=== PATIENT | female | born 1980 | race Caucasian/White ===

== ENCOUNTER 2020-03-31 12:26 | Inpatient (IN) | payer BC, SELFPAY ==
[2020-03-31] VITALS (16 sets, daily range): BP systolic 121–186; BP diastolic 84–118; PULSE 105–126; RESP 22–32; TEMP 36.5–37.6; O2SAT 85–97
--- NOTE | ~2020-03-31 | XR_ITS ---
EXAMINATION: XR chest 1V portable DATE: 03/31/2020 12:58 INDICATION: Shortness of breath TECHNIQUE: frontal view of the chest was obtained. COMPARISON: Chest radiograph dated 12/01/2015 FINDINGS: The lungs remain clear with no focal airspace opacities, pulmonary edema, pleural effusion or pneumot horax. The cardiomediastinal silhouette is normal. The left glenohumeral joint appears slightly widen ed. IMPRESSION: 1. No acute cardiopulmonary disease. 2. Left glenohumeral joint appears slightly widened which could be related to presence of a joint eff usion, laxity or posterior subluxation. Correlate clinically and with physical exam. Reviewed, dictated and finalized at location A. IMPRESSION: 1. No acute cardiopulmonary disease. 2. Left glenohumeral joint appears slightly widened which could be related to p resence of a joint effusion, laxity or posterior subluxation. Correlate clinica lly and with physical exam.
--- NOTE | ~2020-03-31 | XR_ITS ---
MODIFIED ESOPHAGRAM HISTORY: Dysphagia. TECHNIQUE: Modified barium esophagram was performed by speech pathologist under radiologist fluorosco pic guidance. This was recorded on tape. The exam was reviewed on 04/01/2020 11:44 CDT. The DAP for this procedure was 2.3 Gycm2. Fluoroscopy time is 1.7 minutes. FINDINGS: Lateral projection of the cervical spine demonstrates normal alignment. Prosthetic disc d evices are present at C3-4 and C4-5.. There is normal swallowing function without evidence for penetr ation or aspiration.. IMPRESSION: 1: Normal swallowing function without evidence for penetration or aspiration. 2: Please refer to speech pathologist report for additional detail. Reviewed, dictated and finalized at location A.
[2020-03-31] MEDS: methylPREDNISolone SOD SUCC 125 MG VIAL IV PUSH (12:36)
[2020-03-31] MEDS: ALBUTEROL SULFATE NEB 2.5 MG/0.5 ML INH 15 MG INHALATION (12:42)
[2020-03-31] MEDS: IPRATROPIUM BR 0.02% INH SOLN 0.5 MG/2.5 ML VIAL 1.5 MG INHALATION (12:42)
[2020-03-31] MEDS: MAGNESIUM SULF 2 GM/WATER 50ML 2 GM/50 ML BAG IVPB (12:43)
[2020-03-31 12:49] LABS: Basophils Absolute Auto 0.1 K/mm3 (0.0-0.1); Basophils Percent Auto 0.8 % (0.2-1.2); Eosinophils Percent Auto 13.7 % (0-4.4); Hematocrit 41.7 % (37.0-47.0); Hemoglobin 13.7 g/dL (12.0-15.0); Immature Granulocyte Absolute 0.13 K/mm3 (0.00-0.031); Immature Granulocyte Percent A 0.9 % (0-0.5); Lymphocytes Absolute Auto 1.84 K/mm3 (0.9-3.2); Lymphocytes Percent Auto 12.6 % (18.3-44.2); Mean Corpuscular HGB Conc 32.9 g/dl (32-36); Mean Corpuscular Hemoglobin 30.2 pg (26-34); Mean Corpuscular Volume 92.1 fl (80-100); Mean Platelet Volume 9.7 fl (7.4-10.4); Monocytes Percent Auto 6.5 % (2.6-8.5); Neutrophils Absolute Auto 9.6 K/mm3 (1.3-6.7); Neutrophils Percent Auto 65.5 % (45.5-73.1); Platelet Count Result 388 k/mm3 (150-375); Red Blood Count 4.53 M/mm3 (4.2-5.4); Red Cell Distribution Width 13.2 % (11.5-14.5); White Blood Count 14.7 K/mm3 (4.5-10.0)
[2020-03-31 13:01] LABS: Blood Urea Nitrogen 9 mg/dL (7-17); Calcium 9.4 mg/dL (8.4-10.2); Carbon Dioxide 26 mmol/L (22-30); Chloride 101 mmol/L (98-107); Estimated CRCL calculation 93 ml/min; Estimated Glomerular Filt Rate > 60; Glucose 153 mg/dL (65-105); Lactic Acid Reflex 2.5 mmol/L (0.7-2.1); Sodium 138 mmol/L (137-145)
--- NOTE | 2020-03-31 13:07 | ED.SOB ---
HPI - SOB/Dyspnea General Chief Complaint: Shortness of Breath/Dyspnea Stated Complaint: SOB Time Seen by Provider: 03/31/20 12:27 History of Present Illness HPI Narrative: Patient is a 39-year-old female who presents ER with shortness of breath. Patient has history of asthma. 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 Recently diagnosed with a sinus infection and started on Bactrim. She has had increasing shortness of breath over the last week and has been using nebulizer treatments with increased frequency. Today she was at an urgent care and was you more short of breath so she was sent to the ER for further evaluation. Denies fevers or chills or sweats. She has not been on any oral steroids. Her physician has been avoiding this due to some vitamin deficiencies. Patient has chest tightness that is consistent with her previous asthma flares. Related Data Home Medications Medication Instructions Recorded Confirmed albuterol sulfate 2 inh INHALATION Q4H PRN 03/31/20 03/31/20 amitriptyline 20 mg PO DAILY 03/31/20 azelastine 1 spray INTRANASAL DAILY 03/31/20 benzonatate 100 mg PO HS 03/31/20 escitalopram oxalate 10 mg PO HS 03/31/20 montelukast 10 mg PO HS 03/31/20 tiotropium bromide [Spiriva 1 inh INHALATION HS 03/31/20 Respimat] Allergies Allergy/AdvReac Type Severity Reaction Status Date / Time amoxicillin Allergy Unknown Unknown Verified 03/31/20 12:47 Penicillins Allergy Unknown HIVES Verified 03/31/20 12:47 Review of Systems Review of Systems: All systems reviewed & are unremarkable except as noted in HPI and below Constitutional: Constitutional: Denies chills, Denies fever(s) and Denies weakness ENT: Reports nasal congestion and Denies sore throat Cardiovascular: Cardiovascular: Reports chest pain (Tightness consistent with asthma) and Denies rapid heart rate Respiratory: Respiratory: Denies cough, Reports dyspnea and Reports wheezing Gastrointestinal: Gastrointestinal: Denies abdominal pain, Denies nausea and Denies vomiting PMF Past Medical History Medical History (Updated 03/31/20 @ 15:15 by Ramone Aguilar MD) Asthma Brain tumor (benign) Surgical History Surgical History (Updated 03/31/20 @ 13:16 by Ramone Aguilar MD) H/O brain surgery H/O eye surgery H/O sinus surgery Social History Social History (Updated 03/31/20 @ 13:16 by Ramone Aguilar MD) Smoking status: Never smoker Gender identity (if verbalized by the patient): Female Exam Narrative: Exam Narrative: GENERAL: Uncomfortable-appearing, morbidly obese, and in moderate distress. HEAD: Normocephalic, atraumatic. EYES: PERRL and EOMI. CHEST: Diminished throughout with increased respiratory rate and poor air movement. Apical wheezing noted. Speaking in 5 word sentences. HEART: Tachycardic and regular. Normal peripheral pulses. ABDOMEN: Soft, nontender, nondistended. EXTREMITIES: Normal range of motion. No edema. No left shoulder tenderness. SKIN: Warm, dry, no rash. NEURO: Alert and oriented x3. Course Course Emergency Course: Patient much more comfortable after hour-long nebulizer treatment. Unfortunately patient is hypoxic down to 85% with ambulation. Patient will be admitted to hospital service for continued nebulizer treatments and steroids. Vital Signs Vital signs: Vital Signs Temperature 99.6 F 03/31/20 12:27 Pulse Rate 113 H 03/31/20 12:27 Respiratory Rate 32 H 03/31/20 12:27 Blood Pressure 161/112 H 03/31/20 12:27 Pulse Oximetry 96 03/31/20 12:27 Temperature 99.6 F 03/31/20 12:27 Pulse Rate 125 H 03/31/20 14:55 Respiratory Rate 32 H 03/31/20 14:55 Blood Pressure 186/118 H 03/31/20 14:55 Pulse Oximetry 92 03/31/20 14:55 MDM - SOB/Dyspnea Lab Data Result diagrams: 03/31/20 12:39 03/31/20 12:39 Labs: Lab Results 03/31/20 03/31/20 03/31/20 Range/Units 12:39 12:39 12:39 WBC 14.7 H (4.5-10.0) K/mm3 RBC 4.53 (4.2-5.4) M/mm3
[2020-03-31 15:44] LABS: Reflex Lactic Acid Yes or No Add Lactic
[2020-03-31 16:10] LABS: Lactic Acid 1.9 mmol/L (0.7-2.1)
[2020-03-31] MEDS: methylPREDNISolone SOD SUCC 125 MG VIAL 60 MG IV PUSH (18:27)
--- NOTE | 2020-03-31 18:42 | ADMGEN ---
This patient, Marleny Mayer, was admitted to 2 Medical Room 240-. Patient/family oriented to hospital policies and general routines including ID bracelet, bed and alarms, visiting hours, pain management, procedures, bathroom and other care routines, personal items, smoking policy, room service/diet, and visiting hours. Valuables list has been completed. Information on how to activate the Rapid Response Team has been discussed. Patient/Family are encouraged to report perceived risks to care and to ask questions if they do not understand what they are told or what they should do.
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
[2020-03-31] MEDS: ALBUTEROL SULFATE NEB 2.5 MG/0.5 ML INH 5 MG INHALATION (20:05)
[2020-03-31] MEDS: IPRATROPIUM BR 0.02% INH SOLN 0.5 MG/2.5 ML VIAL INHALATION (20:05)
[2020-03-31] MEDS: ACETAMINOPHEN 325 MG TABLET 650 MG PO (21:46)
[2020-03-31] MEDS: MONTELUKAST SODIUM 10 MG TABLET PO (21:47)
[2020-03-31] MEDS: ESCITALOPRAM OXALATE 10 MG TABLET PO (21:47)
[2020-03-31] MEDS: BENZONATATE 100 MG CAPSULE PO (21:48)
[2020-04-01] VITALS (17 sets, daily range): BP systolic 122–150; BP diastolic 62–82; PULSE 93–122; RESP 19–92; TEMP 36.3–36.9; O2SAT 90–95
[2020-04-01] MEDS: methylPREDNISolone SOD SUCC 125 MG VIAL 60 MG IV PUSH ×4 (00:29→21:09)
[2020-04-01] MEDS: ALBUTEROL SULFATE NEB 2.5 MG/0.5 ML INH 5 MG INHALATION ×4 (02:31→19:40)
[2020-04-01] MEDS: IPRATROPIUM BR 0.02% INH SOLN 0.5 MG/2.5 ML VIAL INHALATION ×4 (02:32→19:40)
[2020-04-01 04:58] LABS: Basophils Absolute Auto 0.1 K/mm3 (0.0-0.1); Basophils Percent Auto 0.3 % (0.2-1.2); Eosinophils Percent Auto 0.2 % (0-4.4); Hematocrit 39.1 % (37.0-47.0); Immature Granulocyte Absolute 0.39 K/mm3 (0.00-0.031); Immature Granulocyte Percent A 2.1 % (0-0.5); Lymphocytes Absolute Auto 1.28 K/mm3 (0.9-3.2); Lymphocytes Percent Auto 6.9 % (18.3-44.2); Mean Corpuscular HGB Conc 33.2 g/dl (32-36); Mean Corpuscular Hemoglobin 30.7 pg (26-34); Mean Corpuscular Volume 92.2 fl (80-100); Mean Platelet Volume 9.9 fl (7.4-10.4); Monocytes Absolute Auto 0.4 K/mm3 (0.1-0.6); Neutrophils Absolute Auto 16.3 K/mm3 (1.3-6.7); Neutrophils Percent Auto 88.5 % (45.5-73.1); Platelet Count Result 376 k/mm3 (150-375); Red Blood Count 4.24 M/mm3 (4.2-5.4); Red Cell Distribution Width 13.4 % (11.5-14.5); White Blood Count 18.5 K/mm3 (4.5-10.0)
[2020-04-01 05:58] LABS: Alanine Aminotransferase 20 U/L (4-35); Albumin Level 4.6 g/dL (3.5-5.1); Alkaline Phosphatase 69 U/L (38-126); Aspartate Amino Transferase 24 U/L (14-36); Bilirubin,Total 0.4 mg/dL (0.2-1.3); Blood Urea Nitrogen 14 mg/dL (7-17); Calcium 9.5 mg/dL (8.4-10.2); Carbon Dioxide 26 mmol/L (22-30); Chloride 100 mmol/L (98-107); Estimated CRCL calculation 93 ml/min; Estimated Glomerular Filt Rate > 60; Glucose 183 mg/dL (65-105); Potassium 4.3 mmol/L (3.4-5.0); Sodium 136 mmol/L (137-145)
[2020-04-01] MEDS: AZELASTINE HCL NASAL 0.1% 137 MCG/SPR 30 ML BTL 1 SPRAY NASAL (08:20)
[2020-04-01] MEDS: AMITRIPTYLINE HCL 10 MG TABLET 20 MG PO (08:20)
[2020-04-01] MEDS: LORATADINE 10 MG TABLET PO (08:20)
--- NOTE | 2020-04-01 08:32 | PM.IMPN ---
Progress Note: A&P Assessment and Plan (1) Asthma with exacerbation: Code(s): J45.901 - Unspecified asthma with (acute) exacerbation Status: Acute Assessment and Plan: Likely precipitated by sinus infection, but given reports of dysphagia it may be prudent to rule out possible silent aspiration. She received an hour long nebulizer in the emergency department as well as mag sulfate with improvement. Thereafter she was hypoxic, possible V/Q mismatch, and thus she is being admitted in this setting. Albuterol/ipratropium nebulizers will be scheduled q.6 hours, though may be done up to q.4 hours should the need arise. Will taper frequency of IV Solu-Medrol to q.8 hours given clinical improvement, although still wheezing on exam Mucinex and Cornet will be added to help mobilize secretions. (2) Acute respiratory failure with hypoxia: Code(s): J96.01 - Acute respiratory failure with hypoxia Status: Acute Assessment and Plan: She was hypoxic post 1 hour nebulizer in the emergency department, possible V/Q mismatch. Pulmonary embolism is considered but less likely given history and significant bronchospasm on exam; no signs of DVT on exam, as well. Continue aggressive treatment of asthma exacerbation as detailed above; wean oxygen as tolerated. As above, will check swallow study today to rule out silent aspiration given reports of dysphagia. (3) Sinus infection: Code(s): J32.9 - Chronic sinusitis, unspecified Status: Acute Assessment and Plan: Continue Bactrim which was prescribed to her last week by her otr truck driver. (4) Dysphagia: Code(s): R13.10 - Dysphagia, unspecified Status: Acute Assessment and Plan: Swallow study today Resume oral home medications if allowed Subjective Date/time seen: 04/01/20 08:32 Interval history: Patient is a 39 yo F with history of asthma who is here for acute asthma exacerbation likely related to recent sinus infection. Patient states she is feeling better today although still reporting cough and subsequent chest tightness. She is producing brown/yellow sputum; no blood. Patient occasionally feels flushed but no documented fevers since 03/24 when her sinus infection started; fever improved after initiation of antibiotics. Patient has no other complaints at the moment. Denies localized cp/palpitations, sob, n/v/d/c, abd pain, changes in BMs, dysuria, hematuria, cloudy urine, calf pain/swelling. Review of Systems Review of Systems: All systems reviewed & are unremarkable except as noted in HPI and below Exam Narrative: Exam Narrative: Patient sitting upright in bed at time of visit Const: General: cooperative, comfortable, no acute distress, well developed, alert and ill appearing acutely Nutritional Appearance: well nourished and obese Orientation/consciousness: patient oriented x3 HENMT: Head: normocephalic and atraumatic General nose exam: Normal nares present (NC noted - 2L O2) Face and sinus: face asymmetric (facial droop; chronic) Eyes: General: appearance normal, both eyes and all related structures EOM: EOMs intact bilaterally Neck: Neck: trachea midline and supple Resp: Effort & Inspection: normal respiratory effort and Actively coughing (with expiration) Auscultation: wheezes expiratory wheezes Cardio: Rate: tachycardic Rhythm: regular rhythm Heart sounds: no murmurs GI: Inspection: non-distended and obesity GI Palp: No abdominal tenderness and Yes Soft to palpation Auscultation: normal bowel sounds and normoactive bowel sounds Skin: General skin exam: normal color and no rashes or lesions noted Neuro: General: patient oriented x3, moves all extremities and no focal motor deficits Cranial nerves: No facial
--- NOTE | 2020-04-01 10:55 | PCSTNOTE ---
Please refer to the Modified Barium Swallow Evaluation in the EMR.
[2020-04-01] MEDS: FLUTICASONE PROPIONATE 0.05% NA SPR 16 GM BTL (*BKC) 1 SPRAY NASAL ×2 (11:25→17:14)
[2020-04-01] MEDS: MORPHINE SULFATE 4 MG/ML INJ IV PUSH (14:23)
[2020-04-01] MEDS: ESCITALOPRAM OXALATE 10 MG TABLET PO (21:09)
[2020-04-01] MEDS: MONTELUKAST SODIUM 10 MG TABLET PO (21:09)
[2020-04-01] MEDS: BENZONATATE 100 MG CAPSULE PO (21:09)
[2020-04-02] VITALS (12 sets, daily range): BP systolic 131–147; BP diastolic 70–76; PULSE 81–109; RESP 16–22; TEMP 36.1–36.8; O2SAT 90–93
[2020-04-02] MEDS: ALBUTEROL SULFATE NEB 2.5 MG/0.5 ML INH 5 MG INHALATION ×4 (01:54→19:15)
[2020-04-02] MEDS: IPRATROPIUM BR 0.02% INH SOLN 0.5 MG/2.5 ML VIAL INHALATION ×4 (01:54→19:15)
[2020-04-02 05:37] LABS: Basophils Percent Auto 0.2 % (0.2-1.2); Hematocrit 37.1 % (37.0-47.0); Hemoglobin 12.2 g/dL (12.0-15.0); Immature Granulocyte Absolute 0.47 K/mm3 (0.00-0.031); Immature Granulocyte Percent A 1.9 % (0-0.5); Lymphocytes Absolute Auto 1.26 K/mm3 (0.9-3.2); Lymphocytes Percent Auto 5.2 % (18.3-44.2); Mean Corpuscular HGB Conc 32.9 g/dl (32-36); Mean Corpuscular Hemoglobin 30.4 pg (26-34); Mean Corpuscular Volume 92.5 fl (80-100); Mean Platelet Volume 9.9 fl (7.4-10.4); Monocytes Percent Auto 4.2 % (2.6-8.5); Neutrophils Absolute Auto 21.6 K/mm3 (1.3-6.7); Neutrophils Percent Auto 88.5 % (45.5-73.1); Platelet Count Result 369 k/mm3 (150-375); Red Blood Count 4.01 M/mm3 (4.2-5.4); Red Cell Distribution Width 13.4 % (11.5-14.5); White Blood Count 24.4 K/mm3 (4.5-10.0)
[2020-04-02 05:40] LABS: Blood Urea Nitrogen 21 mg/dL (7-17); Calcium 9.3 mg/dL (8.4-10.2); Carbon Dioxide 28 mmol/L (22-30); Chloride 99 mmol/L (98-107); Estimated CRCL calculation 93 ml/min; Estimated Glomerular Filt Rate > 60; Glucose 198 mg/dL (65-105); Magnesium 2.7 mg/dL (1.6-2.3); Potassium 4.6 mmol/L (3.4-5.0); Sodium 133 mmol/L (137-145)
[2020-04-02] MEDS: methylPREDNISolone SOD SUCC 125 MG VIAL 60 MG IV PUSH ×2 (06:13→20:48)
[2020-04-02] MEDS: FLUTICASONE PROPIONATE 0.05% NA SPR 16 GM BTL (*BKC) 1 SPRAY NASAL ×2 (09:04→17:12)
[2020-04-02] MEDS: LORATADINE 10 MG TABLET PO (09:04)
[2020-04-02] MEDS: AMITRIPTYLINE HCL 10 MG TABLET 20 MG PO (09:04)
[2020-04-02] MEDS: ENOXAPARIN 40 MG/0.4 ML SYRINGE SUB-Q (09:04)
[2020-04-02] MEDS: AZELASTINE HCL NASAL 0.1% 137 MCG/SPR 30 ML BTL 1 SPRAY NASAL (09:04)
[2020-04-02] MEDS: ACETAMINOPHEN 325 MG TABLET 650 MG PO ×3 (09:14→20:56)
--- NOTE | 2020-04-02 15:24 | PM.IMPN ---
Progress Note: A&P Assessment and Plan (1) Asthma with exacerbation: Code(s): J45.901 - Unspecified asthma with (acute) exacerbation Status: Acute Assessment and Plan: Likely precipitated by sinus infection vs possible bacterial pneumonia as sputum shows growth of pseudomonas. CXR on arrival showed no acute cardiopulmonary disease. Still requiring 2L O2 NC. Clinically improving. Exam shows improvement. WBC haroon to 24.4k today Albuterol/ipratropium nebulizers will be scheduled q.6 hours Will taper frequency of IV Solu-Medrol to q.12 hours given clinical improvement Mucinex and Cornet will be added to help mobilize secretions. Bactrim switched to Levaquin for growth of pseudomonas; possibility of underlying bacterial pneumonia although no evidence on CXR (2) Acute respiratory failure with hypoxia: Code(s): J96.01 - Acute respiratory failure with hypoxia Status: Acute Assessment and Plan: She was hypoxic post 1 hour nebulizer in the emergency department, possible V/Q mismatch. Pulmonary embolism is considered but less likely given history and significant bronchospasm on exam; no signs of DVT on exam, as well. Continue treatment of asthma exacerbation as detailed above; wean oxygen as tolerated. (3) Sinus infection: Code(s): J32.9 - Chronic sinusitis, unspecified Status: Acute Assessment and Plan: Bactrim prescribed by her fruit harvester has been switched to Levquin today (4) Dysphagia: Code(s): R13.10 - Dysphagia, unspecified Status: Acute Assessment and Plan: Patient did well on swallow study; home meds have been resumed Subjective Date/time seen: 04/02/20 roughly 15:00 Interval history: Patient is a 39 yo F with history of asthma who is here for acute asthma exacerbation likely related to recent sinus infection and possible pneumonia. Patient states she is feeling better again today; chest tightness and cough both still present but much improved. She was able to have a 20 min phone conversation with her ENT doctor over the phone today and was impressed with her ability to carry the conversation for so long. Sputum production has lessened with her cough. Patient has no other complaints at the moment. Denies localized cp/palpitations, sob, n/v/d/c, abd pain, changes in BMs, dysuria, hematuria, cloudy urine, calf pain/swelling. Review of Systems Review of Systems: All systems reviewed & are unremarkable except as noted in HPI and below Exam Narrative: Exam Narrative: Patient sitting upright in bed at time of visit Const: General: cooperative, comfortable, no acute distress, well developed, alert and ill appearing acutely Nutritional Appearance: well nourished and obese Orientation/consciousness: patient oriented x3 HENMT: Head: normocephalic and atraumatic General nose exam: Normal nares present (NC noted - 2L O2) Face and sinus: face asymmetric (facial droop; chronic) Eyes: General: appearance normal, both eyes and all related structures EOM: EOMs intact bilaterally Neck: Neck: trachea midline and supple Resp: Effort & Inspection: normal respiratory effort and Actively coughing (with expiration) Auscultation: wheezes expiratory wheezes (very faint, diffuse; interval improvement from yesterday) Other: occasional coughs during exam Cardio: Rate: tachycardic Rhythm: regular rhythm Heart sounds: no murmurs GI: Inspection: non-distended and obesity GI Palp: No abdominal tenderness and Yes Soft to palpation Auscultation: normal bowel sounds and normoactive bowel sounds Skin: General skin exam: normal color and no rashes or lesions noted Neuro: General: patient oriented x3, moves all extremities and no focal motor deficits Cranial nerves: No faci
[2020-04-02] MEDS: ESCITALOPRAM OXALATE 10 MG TABLET PO (20:49)
[2020-04-02] MEDS: BENZONATATE 100 MG CAPSULE PO (20:49)
[2020-04-02] MEDS: MONTELUKAST SODIUM 10 MG TABLET PO (20:49)
[2020-04-03] VITALS (13 sets, daily range): BP systolic 134–137; BP diastolic 65–74; PULSE 84–100; RESP 16–20; TEMP 36.2–36.9; O2SAT 91–95
[2020-04-03] MEDS: IPRATROPIUM BR 0.02% INH SOLN 0.5 MG/2.5 ML VIAL INHALATION ×4 (01:25→19:16)
[2020-04-03] MEDS: ALBUTEROL SULFATE NEB 2.5 MG/0.5 ML INH 5 MG INHALATION ×4 (01:25→19:10)
[2020-04-03 04:55] LABS: Basophils Percent Auto 0.2 % (0.2-1.2); Hematocrit 39.1 % (37.0-47.0); Hemoglobin 12.7 g/dL (12.0-15.0); Immature Granulocyte Percent A 2.3 % (0-0.5); Lymphocytes Absolute Auto 1.48 K/mm3 (0.9-3.2); Lymphocytes Percent Auto 6.8 % (18.3-44.2); Mean Corpuscular HGB Conc 32.5 g/dl (32-36); Mean Corpuscular Hemoglobin 30.6 pg (26-34); Mean Corpuscular Volume 94.2 fl (80-100); Monocytes Absolute Auto 0.9 K/mm3 (0.1-0.6); Monocytes Percent Auto 3.9 % (2.6-8.5); Neutrophils Absolute Auto 18.9 K/mm3 (1.3-6.7); Neutrophils Percent Auto 86.8 % (45.5-73.1); Platelet Count Result 412 k/mm3 (150-375); Red Blood Count 4.15 M/mm3 (4.2-5.4); Red Cell Distribution Width 13.5 % (11.5-14.5); White Blood Count 21.8 K/mm3 (4.5-10.0)
[2020-04-03 08:38] LABS: Blood Urea Nitrogen 17 mg/dL (7-17); Carbon Dioxide 27 mmol/L (22-30); Chloride 101 mmol/L (98-107); Estimated CRCL calculation 83 ml/min; Estimated Glomerular Filt Rate > 60; Glucose 154 mg/dL (65-105); Magnesium 2.7 mg/dL (1.6-2.3); Potassium 4.4 mmol/L (3.4-5.0); Sodium 135 mmol/L (137-145)
[2020-04-03] MEDS: AZELASTINE HCL NASAL 0.1% 137 MCG/SPR 30 ML BTL 1 SPRAY NASAL (08:50)
[2020-04-03] MEDS: AMITRIPTYLINE HCL 10 MG TABLET 20 MG PO (08:50)
[2020-04-03] MEDS: LORATADINE 10 MG TABLET PO (08:50)
[2020-04-03] MEDS: FLUTICASONE PROPIONATE 0.05% NA SPR 16 GM BTL (*BKC) 1 SPRAY NASAL ×2 (08:51→16:59)
[2020-04-03] MEDS: methylPREDNISolone SOD SUCC 125 MG VIAL 60 MG IV PUSH (08:51)
[2020-04-03] MEDS: ENOXAPARIN 40 MG/0.4 ML SYRINGE SUB-Q (08:51)
--- NOTE | 2020-04-03 10:15 | PM.IMPN ---
Progress Note: A&P Assessment and Plan (1) Asthma with exacerbation: Code(s): J45.901 - Unspecified asthma with (acute) exacerbation Status: Acute Assessment and Plan: Likely precipitated by sinus infection vs possible bacterial pneumonia as sputum shows growth of pseudomonas. CXR on arrival showed no acute cardiopulmonary disease. Still requiring 2L O2 NC, but was briefly on 1L yesterday. Clinically improving. Exam similar to yesterday. WBC 21.8k today; improvement. VSS; afebrile Albuterol/ipratropium nebulizers will be scheduled q.6 hours Will taper frequency of IV Solu-Medrol to q.24 hours given clinical improvement Mucinex and Cornet will be added to help mobilize secretions; will add guafenesin/codeine syrup for coughing fits as needed as well Bactrim switched to Levaquin for growth of pseudomonas; possibility of underlying bacterial pneumonia although no evidence on CXR on arrival Monitor closely Wean O2 as tolerated; consider home O2 eval tomorrow (2) Acute respiratory failure with hypoxia: Code(s): J96.01 - Acute respiratory failure with hypoxia Status: Acute Assessment and Plan: She was hypoxic post 1 hour nebulizer in the emergency department, possible V/Q mismatch. Pulmonary embolism is considered but less likely given history and significant bronchospasm on exam; no signs of DVT on exam, as well. Continue treatment of asthma exacerbation as detailed above; wean oxygen as tolerated. (3) Sinus infection: Code(s): J32.9 - Chronic sinusitis, unspecified Status: Acute Assessment and Plan: Bactrim prescribed by her senior partner has been switched to Levquin yesterday (4) Dysphagia: Code(s): R13.10 - Dysphagia, unspecified Status: Acute Assessment and Plan: Patient did well on swallow study; home meds have been resumed Subjective Date/time seen: 04/03/20 10:15 Interval history: Patient is a 39 yo F with history of asthma who is here for acute asthma exacerbation likely related to recent sinus infection and possible pneumonia. Patient states she is feeling better again today; chest tightness and cough both still present but slightly improved compared to yesterday. She states she was briefly weaned to 1L yesterday which did well for roughly 45 minutes and then was taken back up to 2L due to hypoxia from coughing fits. She is slightly constipated. Patient has no other complaints at the moment. Denies fevers, chills, sweats, localized cp/palpitations, sob, n/v/d, abd pain, dysuria, hematuria, cloudy urine, calf pain/swelling. Review of Systems Review of Systems: All systems reviewed & are unremarkable except as noted in HPI and below Exam Narrative: Exam Narrative: Patient sitting upright in bed at time of visit Const: General: cooperative, comfortable, no acute distress, well developed and alert Nutritional Appearance: well nourished and obese Orientation/consciousness: patient oriented x3 HENMT: Head: normocephalic and atraumatic General nose exam: Normal nares present (NC noted - 2L O2) Face and sinus: face asymmetric (facial droop; chronic) Eyes: General: appearance normal, both eyes and all related structures EOM: EOMs intact bilaterally Neck: Neck: trachea midline and supple Resp: Effort & Inspection: normal respiratory effort and Actively coughing (with expiration) Auscultation: wheezes expiratory wheezes (very faint, diffuse; similar to yesterday) Other: occasional coughs during exam Cardio: Rate: tachycardic Rhythm: regular rhythm Heart sounds: no murmurs GI: Inspection: non-distended and obesity GI Palp: No abdominal tenderness and Yes Soft to palpation Auscultation: normal bowel sounds and normoactive bowel sounds Skin: G
[2020-04-03] MEDS: DOCUSATE SODIUM 100 MG CAPSULE PO (16:59)
[2020-04-03] MEDS: MONTELUKAST SODIUM 10 MG TABLET PO (20:13)
[2020-04-03] MEDS: BENZONATATE 100 MG CAPSULE PO (20:13)
[2020-04-03] MEDS: ESCITALOPRAM OXALATE 10 MG TABLET PO (20:13)
[2020-04-04] VITALS (13 sets, daily range): BP systolic 120–125; BP diastolic 64–78; PULSE 70–121; RESP 18–22; TEMP 36.2; O2SAT 84–94
[2020-04-04] MEDS: ALBUTEROL SULFATE NEB 2.5 MG/0.5 ML INH 5 MG INHALATION ×3 (01:03→14:14)
[2020-04-04] MEDS: IPRATROPIUM BR 0.02% INH SOLN 0.5 MG/2.5 ML VIAL INHALATION ×3 (01:03→14:14)
[2020-04-04 05:34] LABS: Blood Urea Nitrogen 20 mg/dL (7-17); Carbon Dioxide 31 mmol/L (22-30); Chloride 98 mmol/L (98-107); Estimated CRCL calculation 83 ml/min; Estimated Glomerular Filt Rate > 60; Glucose 152 mg/dL (65-105); Magnesium 2.5 mg/dL (1.6-2.3); Potassium 3.7 mmol/L (3.4-5.0); Sodium 134 mmol/L (137-145)
[2020-04-04 05:35] LABS: Basophils Percent Auto 0.2 % (0.2-1.2); Eosinophils Absolute Auto 0.1 K/mm3 (0-0.3); Eosinophils Percent Auto 0.3 % (0-4.4); Hematocrit 38.1 % (37.0-47.0); Hemoglobin 12.3 g/dL (12.0-15.0); Immature Granulocyte Percent A 2.9 % (0-0.5); Lymphocytes Absolute Auto 2.72 K/mm3 (0.9-3.2); Lymphocytes Percent Auto 15.9 % (18.3-44.2); Mean Corpuscular HGB Conc 32.3 g/dl (32-36); Mean Corpuscular Hemoglobin 30.2 pg (26-34); Mean Corpuscular Volume 93.6 fl (80-100); Mean Platelet Volume 10.3 fl (7.4-10.4); Monocytes Absolute Auto 1.4 K/mm3 (0.1-0.6); Monocytes Percent Auto 8.2 % (2.6-8.5); Neutrophils Absolute Auto 12.4 K/mm3 (1.3-6.7); Neutrophils Percent Auto 72.5 % (45.5-73.1); Platelet Count Result 346 k/mm3 (150-375); Red Blood Count 4.07 M/mm3 (4.2-5.4); Red Cell Distribution Width 13.3 % (11.5-14.5); White Blood Count 17.1 K/mm3 (4.5-10.0)
[2020-04-04] MEDS: AMITRIPTYLINE HCL 10 MG TABLET 20 MG PO (08:00)
[2020-04-04] MEDS: LORATADINE 10 MG TABLET PO (08:00)
[2020-04-04] MEDS: methylPREDNISolone SOD SUCC 125 MG VIAL 60 MG IV PUSH (08:01)
[2020-04-04] MEDS: ENOXAPARIN 40 MG/0.4 ML SYRINGE SUB-Q (08:01)
[2020-04-04] MEDS: FLUTICASONE PROPIONATE 0.05% NA SPR 16 GM BTL (*BKC) 1 SPRAY NASAL (08:02)
[2020-04-04] MEDS: AZELASTINE HCL NASAL 0.1% 137 MCG/SPR 30 ML BTL 1 SPRAY NASAL (08:02)
--- NOTE | 2020-04-04 11:56 | PM.DS ---
DS: Diagnosis Admitting Diagnosis Admitting Diagnosis: Unspecified asthma with (acute) exacerbation Discharge Diagnosis (1) Asthma with exacerbation: Code(s): J45.901 - Unspecified asthma with (acute) exacerbation Status: Acute Assessment and Plan: Likely precipitated by sinus infection vs possible bacterial pneumonia as sputum shows growth of pseudomonas. CXR on arrival showed no acute cardiopulmonary disease. Still requiring 2L O2 NC at times, but was on 1L O2 again today. Clinically improving again today. Lung exam has improved today. WBC 17.1k today; improvement. VSS; afebrile throughout stay. COVID less likely diagnosis given presentation, exam, afebrile, and history. Will do steroid taper at discharge Cornet will be added to help mobilize secretions will do guafenesin/codeine syrup for coughing fits as needed at discharge Bactrim switched to Levaquin for growth of pseudomonas; will prescribe through 04/08. Possibility of underlying bacterial pneumonia although no evidence on CXR on arrival Monitor closely Wean O2 as tolerated; Will do Home O2 eval today f/u with sinus specialist, ENT physician, and PCP after discharge CBC on 04/08 as outpatient (2) Acute respiratory failure with hypoxia: Code(s): J96.01 - Acute respiratory failure with hypoxia Status: Acute Assessment and Plan: She was hypoxic post 1 hour nebulizer while in the emergency department, possible V/Q mismatch. Pulmonary embolism and COVID infection considered but less likely given history and significant bronchospasm on exam; no signs of DVT on exam, as well. Continue treatment of asthma exacerbation as detailed above; wean oxygen as tolerated. (3) Sinus infection: Code(s): J32.9 - Chronic sinusitis, unspecified Status: Acute Assessment and Plan: Bactrim prescribed by her psychiatric social worker has been switched to Levquin earlier in stay Levaquin through 04/08 (4) Dysphagia: Code(s): R13.10 - Dysphagia, unspecified Status: Acute Assessment and Plan: Patient did well on swallow study; home meds have been resumed DS: Summary Hospital Course Reason for hospitalization: acute asthma exacerbation, pseudomonas infection, acute respiratory failure with hypoxia likely due to asthma exacerbation vs PNA. Hospital Course: Patient is a 39 yo F with history of asthma who presented to the emergency department on 03/31 for evaluation of shortness of breath. Patient had a recent sinus infection for the past week or months and was placed on a course of Bactrim roughly 1 week prior by her sinus specialist after she had spiked a fever. Roughly 5 days prior to presentation she developed increased wheezing and coughing with her nebulizer being of lesser and lesser benefit. She had been coughing up yellow/brown sputum. Patient also had begun having shortness of breath with minimal exertion and decided to come in to the ER for evaluation. While in the ER her symptoms improved with mag sulfate and an hour long breathing treatment, however still had significant wheezing and was admitted under this setting and due to being hypoxic requiring 2L O2 NC. Please see H&P for further details Presenting VS: Temp Pulse Resp BP Pulse Ox 99.6 F 113 H 32 H 161/112 H 96 2L NC 03/31/20 12:27 03/31/20 12:27 03/31/20 12:27 03/31/20 12:27 03/31/20 12:27 Presenting Pertinent labs: WBC 14.7, L.A. 2.5. CBC and chemistry otherwise unremarkable Micro: Sputum culture growing Pseudomonas aeruginosa that is pansensitive Imaging: Chest X-Ray 03/31/20 13:06 IMPRESSION: 1. No acute cardiopulmonary disease. 2. Left glenohumeral joint appears slightly widened which could be related to presence of a joint effusion, laxity or posterior subluxati
--- NOTE | 2020-04-04 13:56 | PCRCNOTE ---
Home O2 evaluation completed. Patient does not require supplemental O2 while at rest and is able to maintain adequate sats on RA. She does require supplemental O2 while ambulating. Her SpO2 dropped to 84% while ambulating on RA, but she is able to maintain adequate O2 saturations while ambulating on 2L supplemental O2.
== END 2020-04-04 16:39 | disposition home or self-care (01) | DRG 177 ==
LOC: ANHED 15:15 → ANH2MED 15:50
PROVIDERS: Physician Assistant; Admitting Provider Family Medicine; Emergency Provider Emergency Medicine; PCP Internal Medicine; Visit Provider Family Medicine
DX: J15.1 Pneumonia due to Pseudomonas (principal); J96.01 Acute respiratory failure with hypoxia; J45.901 Unspecified asthma with (acute) exacerbation; J01.90 Acute sinusitis, unspecified; R13.10 Dysphagia, unspecified; D72.829 Elevated white blood cell count, unspecified; T38.0X5A Adverse effect of glucocorticoids and synthetic analogues, initial encounter; Z98.1 Arthrodesis status
CPT/HCPCS: 36415; 71045; 80048; 80053; 83605; 83735; 85025; 87070; 87077; 87186; 87205; 92611; 94618; 94640; 94667; 94668; 96365; 96372; 96375; 96376; 99285; A9270; G0378; J1650; J2270; J2930; J3475

== ENCOUNTER 2020-09-02 07:08 | Outpatient (CLI) | payer BC, SELFPAY ==
--- NOTE | ~2020-09-02 | CT_ITS ---
EXAMINATION: CT sinus wo con DATE: 09/02/2020 08:43 INDICATION: Persistent sinusitis. Shortness of breath. TECHNIQUE: Computed tomography (CT) of the paranasal sinuses was performed without contrast. Iterativ e reconstruction technique was employed. Exam dose: 300.40 mGy-cm total exam DLP. COMPARISON: 10/24/2016 CT brain FINDINGS: There is rightward bowing of the nasal septum. There is prominent soft tissue swelling of the nasal turbinates. There is asymmetric soft tissue swel ling of the left middle nasal turbinate. There is opacified interlamellar cell of left middle nasal t urbinate. Right nasal antral window. The right maxillary ostium and infundibulum are opacified. There is a wider nasal antral window on the left. Bilateral partial ethmoidectomies. There is complete opacification of the left frontal sinus. There is moderately prominent mucoperioste al thickening of the right frontal sinus. There is extensive soft tissue thickening of the residual ethmoid sinus region bilaterally. There is prominently compressed thickening of the right maxillary sinus, mild mucoperiosteal thickeni ng of the left maxillary sinus. There is mild mucosal periosteal thickening of the sphenoid sinuses. The mastoid air cells are normally developed and aerated bilaterally. Middle and inner ear apparatus appear normal. Occipital craniectomy again noted. IMPRESSION: Bilateral nasal antral windows, with wider resection on the left; bilateral partial ethmo idectomies. Rightward bowing of nasal septum Prominence of the nasal turbinates, especially left middle nasal turbinate, which has opacified inter lamellar cell Mucosal periosteal thickening of all paranasal sinuses, most prominent at the left frontal and right maxillary sinuses Reviewed, dictated and finalized at [facility]. Reviewed, dictated and finalized at [facility]. IMPRESSION: Bilateral nasal antral windows, with wider resection on the left; b ilateral partial ethmoidectomies. Rightward bowing of nasal septum Prominence of the nasal turbinates, especially left middle nasal turbinate, whi ch has opacified interlamellar cell Mucosal periosteal thickening of all paranasal sinuses, most prominent at the l eft frontal and right maxillary sinuses
--- NOTE | ~2020-09-02 | CT_ITS ---
EXAMINATION: CT chest w con EXAM DATE: 09/02/2020 08:43 INDICATION: Recurrent sinusitis. Follow-up pneumonia. TECHNIQUE: Spiral CT of the chest following intravenous injection of 75 mL Omnipaque 350. Axial, cor onal and sagittal images were reviewed. Coronal maximum intensity pixel images of chest reviewed. Nelly titus dose-length product (DLP) for this examination was 307.64 mGy-cm. The exposure was tailored accor ding to patient size (auto mA exposure control), and iterative reconstruction (ASIR) was used as massimo tional dose reduction technique. Correlation is made to chest x-ray 03/31/2020. FINDINGS: There are a few scattered peripheral groundglass opacities bilaterally. Appearance is efrain picious for early stage COVID 19, acute lung injury. Less likely acute possibilities include influen za, pulmonary edema or hemorrhage. Some chronic processes that can have this appearance include crypt ogenic organizing pneumonia, desquamative interstitial pneumonia, nonspecific interstitial pneumonia, drug toxicity, connective tissue disease. Please clinically correlate and test as appropriate. There are no pleural or pericardial effusions. Small amount of mainstem bronchus and bibasilar segm ental endobronchial debris. There is no mediastinal, hilar or axillary lymphadenopathy. There is n o pneumothorax. Heart normal in size. No evidence of coronary arterial calcification. Upper abdo men is unremarkable. There is thoracic spondylosis without osteoblastic or osteolytic lesions ident ified. IMPRESSION: Several scattered regions bilateral peripheral groundglass opacities suspicious for COVID -19 pneumonia. Clinical correlation. Reviewed, dictated and finalized at [facility]. IMPRESSION: Several scattered regions bilateral peripheral groundglass opacitie s suspicious for COVID-19 pneumonia. Clinical correlation.
== END 2020-09-02 07:09 | disposition home or self-care (01) ==
DX: J32.9 Chronic sinusitis, unspecified (principal); R06.02 Shortness of breath; J18.9 Pneumonia, unspecified organism
CPT/HCPCS: 70486; 71260; Q9967

== ENCOUNTER 2021-09-06 11:12 | Outpatient (CLI) | payer OTHER, SELFPAY ==
--- NOTE | ~2021-09-06 | CT_ITS ---
EXAMINATION: CT cervical spine wo con DATE: 09/06/2021 11:48 INDICATION: Neck pain. Right arm radicular pain. TECHNIQUE: Computed tomography (CT) of the cervical spine was performed without intravenous contrast. Automated exposure control and iterative reconstruction technique were employed. The dose-length pro duct was 441.20 mGy-cm. COMPARISON: Cervical spine CT 02/25/17, head CT 10/24/16 FINDINGS: There is chronic encephalomalacia involving the left cerebellar hemisphere. There are coffey es of occipital craniotomy. There is 6 degrees dextrocurvature of cervical spine. There are disc repl acement that C3-C4 and C4-C5. Vertebral body heights are normal. Intervertebral disc heights are norm al. The following disc levels are specifically discussed: C2-C3: There is mild bilateral uncovertebral joint osteoarthritis. There is no facet joint osteoarthr itis. There is no neural foraminal stenosis. There is no central canal stenosis. C3-C4: There is mild bilateral uncovertebral joint osteoarthritis. There is no facet joint osteoarthr itis. There is mild left neural foraminal stenosis. There is mild central canal stenosis. C4-C5: There is no uncovertebral joint osteoarthritis. There is no facet joint osteoarthritis. There is no neural foraminal stenosis. There is no central canal stenosis. C5-C6: There is no uncovertebral joint osteoarthritis. There is no facet joint osteoarthritis. There is no neural foraminal stenosis. There is mild central canal stenosis. C6-C7: There is no uncovertebral joint osteoarthritis. There is no facet joint osteoarthritis. There is no neural foraminal stenosis. There is no central canal stenosis. C7-T1: There is no uncovertebral joint osteoarthritis. There is mild right and moderate left facet tiffani int osteoarthritis. There is no neural foraminal stenosis. There is no central canal stenosis. IMPRESSION: 1. Mild cervical spondylosis. 2. Disc replacements at C3-C4 and C4-C5. Reviewed, dictated and finalized at [facility].
== END 2021-09-06 11:13 | disposition home or self-care (01) ==
LOC: ANHIMG 11:15
PROVIDERS: PCP Internal Medicine; Visit Provider Internal Medicine
DX: M47.892 Other spondylosis, cervical region (principal); M50.221 Other cervical disc displacement at C4-C5 level
CPT/HCPCS: 72125